=== PATIENT | male | born 1965 | race Two or more races ===

== ENCOUNTER 2022-10-10 19:25 | Emergency (ER) | payer OTHER ==
[~2022-10-10] VITALS: Ht 170.2 cm; Wt 86.2 kg
[~2022-10-10 19:25] MED LIST: NORVASC2.5 M1
[2022-10-10] MEDS ORDERED: TAMS0.4C PO (22:54)
[2022-10-10] MEDS ORDERED: CIPRO500 MG PO (22:54)
[2022-10-10] MEDS ORDERED: KETO10TA2 PO (22:55)
== END 2022-10-10 23:16 | disposition home or self-care (01) ==
LOC: ER 19:25
DX: N20.9 Urinary calculus, unspecified (principal); R11.0 Nausea; R11.10 Vomiting, unspecified

== ENCOUNTER 2024-01-03 18:21 | Emergency (ER) | payer OTHER ==
[~2024-01-03] VITALS: Ht 177.8 cm; Wt 88.5 kg
[~2024-01-03 18:21] MED LIST changes: +CIPRO500 MG PO; +KETO10TA2 PO; +TAMS0.4C PO
[2024-01-03] MEDS ORDERED: ROSUVASTATIN CA10 MG PO (19:52)
[2024-01-03] MEDS ORDERED: IRBESARTAN150 MG PO (19:52)
[2024-01-03] MEDS ORDERED: KETO10TA2 PO (23:03)
== END 2024-01-03 23:29 | disposition home or self-care (01) ==
LOC: ER 18:22
DX: S29.8XXA Other specified injuries of thorax, initial encounter (principal); V19.88XA Pedal cyclist (driver) (passenger) injured in other specified transport accidents, initial encounter; Y93.89 Activity, other specified; Y92.413 State road as the place of occurrence of the external cause; I10 Essential (primary) hypertension